=== PATIENT | male | born 1995 | race Caucasian/White ===

== ENCOUNTER 2021-01-24 12:48 | Emergency (ER) | payer OTHER ==
[2021-01-24 13:45] LABS: BASO # 0.03 (0.02-0.10); EOS # 0.16 (0.04-0.40); EOS % 1.5 % (0.0-4.0); HEMATOCRIT 43.9 % (42.0-52.0); HEMOGLOBIN 15.2 g/dL (13.5-18.0); LYMPH# 3.77 (1.50-4.00); MEAN CELL VOLUME 90 fl (78-100); MEAN CORPUSCULAR HEMOGLOBIN 31 pg (27-31); MEAN CORPUSCULAR HGB CONC 35 g/dL (33-37); MEAN PLATELET VOLUME 11.3 fl (7.4-10.4); MONO # 1.09 (0.20-0.80); NEU # 5.61 (1.40-6.50); PLATELET COUNT 242 K/mm3 (130-400); WHITE BLOOD COUNT 10.7 K/mm3 (4.8-10.8)
[2021-01-24 14:02] LABS: ALBUMIN 4.5 g/dL (3.5-5.0); POTASSIUM 4.2 mmol/L (3.5-5.1)
[2021-01-24 14:03] LABS: CALCIUM 9.2 mg/dL (8.3-10.5)
[2021-01-24 14:04] LABS: TOTAL PROTEIN 7.1 g/dL (6.4-8.3)
[2021-01-24 14:05] LABS: URINE APPEARANCE CLEAR; URINE BILIRUBIN NEGATIVE (NEGATIVE); URINE BLOOD NEGATIVE (NEGATIVE); URINE COLOR YELLOW; URINE GLUCOSE NEGATIVE (NEGATIVE); URINE KETONE NEGATIVE (NEGATIVE); URINE LEUKOCYTE ESTERASE NEGATIVE (NEGATIVE); URINE NITRATE NEGATIVE (NEGATIVE); URINE PROTEIN(semi-quant) NEGATIVE (NEGATIVE); URINE UROBILINOGEN NORMAL (NORMAL); URINE WBC 0-1 /hpf (0-3)
[2021-01-24 14:06] LABS: TOTAL BILIRUBIN 0.5 mg/dL (0.2-1.2)
[2021-01-24 14:38] VITALS: BP 132/89
== END 2021-01-24 14:42 | disposition home or self-care (01) ==
LOC: ED 12:48
PROVIDERS: Nurse Practitioner
DX: R10.9 Unspecified abdominal pain (principal); F17.210 Nicotine dependence, cigarettes, uncomplicated; Z84.1 Family history of disorders of kidney and ureter